=== PATIENT | female | born 1955 | race Caucasian/White ===

== ENCOUNTER 2018-07-14 06:37 | Inpatient (IN) | payer MEDICAID ==
[2018-07-14] MEDS ORDERED: Bupivacaine 0.5%/EPINEPHrine 1:200,000 50 ML MDV ONE (06:38)
[2018-07-14] MEDS ORDERED: Scopolamine 1.5 MG Transdermal Patch TOP ONE (06:45)
[2018-07-14] MEDS ORDERED: Acetaminophen 500 MG Tab PO ONE (06:45)
[2018-07-14] MEDS ORDERED: Dextrose 5%-Lactated Ringers 1,000 ML IV SCH (07:00)
[2018-07-14] MEDS ORDERED: Neostigmine Methylsulfate 1 MG/ML 5 ML Syringe ONE (07:52)
[2018-07-14] MEDS ORDERED: Rocuronium 50 MG/5 ML Vial ONE (07:52)
[2018-07-14] MEDS ORDERED: Succinylcholine 200 MG/10 ML MDV ONE (07:52)
[2018-07-14] MEDS ORDERED: Propofol 200 MG/20 ML SDV ONE (07:52)
[2018-07-14] MEDS ORDERED: Ondansetron 4 MG/2 ML SDV ONE (07:52)
[2018-07-14] MEDS ORDERED: Dexamethasone 4 MG/ML SDV ONE (07:52)
[2018-07-14] MEDS ORDERED: fentaNYL 250 MCG/5 ML SDV ONE ×2 (07:52→09:19)
[2018-07-14] MEDS ORDERED: Glycopyrrolate 0.2 MG/ML 5 ML MDV ONE (07:52)
[2018-07-14] MEDS ORDERED: cefOXitin 2 GM in Sodium Chloride 0.9% 50 ML IV ONE (08:00)
[2018-07-14] MEDS ORDERED: Meropenem 500 MG SDV ONE (08:03)
[2018-07-14] MEDS ORDERED: Ketamine 50 MG in Sodium Chloride 0.9% 49.5 ML IV SCH (08:15)
[2018-07-14] MEDS ORDERED: Ketamine 500 MG/5 ML MDV IV SCH (08:15)
[2018-07-14] MEDS ORDERED: Lactated Ringers 1,000 ML ONE (09:37)
[2018-07-14] MEDS ORDERED: Naloxone 0.4 MG/ML SDV ONE (10:12)
[2018-07-14] MEDS ORDERED: diphenhydrAMINE 50 MG/ML SDV IVPUSH PRN (12:10)
[2018-07-14] MEDS ORDERED: Metoclopramide 10 MG/2 ML SDV IVPUSH PRN (12:10)
[2018-07-14] MEDS ORDERED: HYDROmorphone 1 MG/ML Syringe IV PRN (12:10)
[2018-07-14] MEDS ORDERED: hydrOXYzine HCl 100 MG/2 ML SDV IM PRN (12:10)
[2018-07-14] MEDS ORDERED: Ondansetron 4 MG/2 ML SDV IVPUSH PRN (12:10)
[2018-07-14] MEDS ORDERED: Labetalol 20 MG/4 ML Syringe IVPUSH PRN (12:10)
[2018-07-14] MEDS: cefOXitin 2 GM in Sodium Chloride 0.9% 50 ML IV SCH ×2 (14:42→20:28)
[2018-07-14] MEDS ORDERED: MVI, Adult with Vitamin K 10 ML, Thiamine 200 MG, Chromium/Copper/Mang/Selen/Zn 1 ML in... IV SCH ×4 (16:00)
[2018-07-14] MEDS: Pantoprazole 40 MG Vial IVPUSH SCH (16:26)
[2018-07-14] MEDS: Sodium Ferric Gluconate Cmplex 250 MG in Sodium Chloride 0.9% 100 ML IV SCH (16:26)
[2018-07-14] MEDS: Acetaminophen 325 MG Tab PO SCH ×2 (16:26→23:02)
[2018-07-14] MEDS: MVI, Adult with Vitamin K 10 ML, Thiamine 200 MG, Chromium/Copper/Mang/Selen/Zn 1 ML in... IV SCH ×4 (18:31)
[2018-07-14] MEDS: Heparin Sodium 5,000 Units/ML Vial SUBCUT SCH (20:44)
[2018-07-14] MEDS: HYDROmorphone 0.5 MG/0.5 ML Syringe IVPUSH PRN (20:51)
[2018-07-15] MEDS: Dextrose 5%-Lactated Ringers 1,000 ML IV SCH ×2 (00:54→08:14)
[2018-07-15] MEDS ORDERED: Iohexol 647 MG/ML 50 ML SDV PO SCH (01:30)
[2018-07-15] MEDS: cefOXitin 2 GM in Sodium Chloride 0.9% 50 ML IV SCH (02:54)
[2018-07-15] MEDS: Acetaminophen 325 MG Tab PO SCH ×3 (03:01→15:26)
[2018-07-15] MEDS: HYDROmorphone 0.5 MG/0.5 ML Syringe IVPUSH PRN (03:06)
--- NOTE | 2018-07-15 05:50 | CRLCR ---
Indication: Suzette-en-Y gastric bypass. Technique: Abdomen 2 view Comparison: None Findings/Impression: Two submitted plain film abdomen. Initial image shows contrast within the distal esophagus extending into the proximal small bowel without gross extravasation. Skin vance and pneumoperitoneum are noted consistent with recent surgery. Second film labeled 15 minutes shows progression of contrast into the proximal small bowel. No gross extravasation. Dictated by Eliot Nathan MD @ Jul 15 2018 5:47AM Signed by Dr. Eliot Nathan @ Jul 15 2018 5:49AM
[2018-07-15] MEDS: Heparin Sodium 5,000 Units/ML Vial SUBCUT SCH ×2 (08:15→20:17)
[2018-07-15] MEDS: SCOPOLAMINE PATCH CHECK TOP SCH (08:15)
[2018-07-15] MEDS ORDERED: Dextrose 5%-Lactated Ringers 1,000 ML IV SCH (08:22)
[2018-07-15] MEDS: HYDROmorphone 2 MG Tab PO PRN ×3 (09:01→20:15)
[2018-07-15] MEDS: Ondansetron 4 MG Tab.DIS PO PRN ×2 (10:28→20:15)
--- NOTE | 2018-07-15 11:42 | PN ---
DATE OF SERVICE: 07/15/2018 SUBJECTIVE: Katarina is postoperative day #1. She states her pain is well managed, but she is having issues with nausea. REVIEW OF SYSTEMS: Remainder of review of systems negative for any pertinent positives and negatives. Her upper GI this morning was normal. OBJECTIVE: GENERAL: Katarina Pressley is a 63-year-old female. She is alert and orientated. VITAL SIGNS: TPR is 97.5, 61, 16, blood pressure 152/69. HEENT: Negative. NECK: Supple. HEART: Regular rate and rhythm. LUNGS: Clear. ABDOMEN: Dressings dry and intact. Abdominal binder is on. EXTREMITIES: Without peripheral edema. ASSESSMENT: 1. Laparoscopic turned to laparotomy with: a. Reduction of small bowel volvulus and closure of internal hernia. b. Small-bowel resection. c. Placement of Interceed mesh for small bowel volvulus, small bowel BP limb stump causing malrotation or distortion of the segment of the jejunojejunostomy. Date of surgery: 07/14/2018. Surgeon: José Nevarez MD. PLAN: 1. Dilaudid 2 mg 1-2 q.4 hours p.r.n. pain. 2. Decrease IV to 100 mL per hour. 3. Step 3 gastric bypass diet. 4. Zofran 4 mg ODT q.4 hours p.r.n. nausea. 5. Good pulmonary toilet. 6. We will evaluate p.r.n. or in a.m. Lisa Sánchez PA-C /[id number]
[2018-07-15] MEDS: Sodium Ferric Gluconate Cmplex 250 MG in Sodium Chloride 0.9% 100 ML IV SCH (15:27)
[2018-07-15] MEDS: Pantoprazole 40 MG Vial IVPUSH SCH (15:28)
[2018-07-15] MEDS ORDERED: Lactated Ringers 500 ML IV SCH (17:30)
[2018-07-15] MEDS: MVI, Adult with Vitamin K 10 ML, Thiamine 200 MG, Chromium/Copper/Mang/Selen/Zn 1 ML in... IV SCH ×4 (17:43)
[2018-07-16] MEDS: Acetaminophen 325 MG Tab PO SCH ×5 (01:07→22:25)
[2018-07-16] MEDS ORDERED: Sodium Chloride 0.9% 10 ML Syringe IV PRN (07:59)
[2018-07-16] MEDS: Heparin Sodium 5,000 Units/ML Vial SUBCUT SCH ×2 (08:08→22:25)
[2018-07-16] MEDS: HYDROmorphone 2 MG Tab PO PRN ×3 (08:14→22:28)
[2018-07-16] MEDS: SCOPOLAMINE PATCH CHECK TOP SCH (08:16)
[2018-07-16] MEDS ORDERED: Cyanocobalamin (Vitamin B12) 1,000 MCG/ML SDV IM ONE (09:00)
[2018-07-16] MEDS: Magnesium Hydroxide 400 MG/5 ML Susp 30 ML Cup PO SCH ×2 (10:28→23:34)
[2018-07-16] MEDS: Pantoprazole 40 MG Vial IVPUSH SCH (15:51)
[2018-07-16] MEDS: MVI, Adult with Vitamin K 10 ML, Thiamine 200 MG, Chromium/Copper/Mang/Selen/Zn 1 ML in... IV SCH ×4 (18:07)
[2018-07-17] MEDS: Acetaminophen 325 MG Tab PO SCH ×2 (04:14→10:17)
[2018-07-17] MEDS: Heparin Sodium 5,000 Units/ML Vial SUBCUT SCH (08:44)
[2018-07-17 08:54] VITALS: BP 138/79
[2018-07-17] MEDS: HYDROmorphone 2 MG Tab PO PRN (10:16)
--- NOTE | 2018-07-17 11:53 | PN ---
DATE OF SERVICE: 07/16/2018 The patient has been afebrile with stable vital signs. No bowel movement as of yet, but she is passing a little bit of gas. We will bowel stimulate today. We will switch her over to oral pain medication. discharge home tomorrow. She will get her second IV iron infusion today as well. José Nevarez MD /[id number]
--- NOTE | 2018-07-17 13:21 | DISCH ---
FINAL DIAGNOSES: 1. Small bowel volvulus. 2. 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 SECONDARY DIAGNOSES: 1. Bariatric surgery status. 2. Iron-deficiency status. 3. History of hyperlipidemia. 4. History of hypertension. 5. Osteopenia. OPERATIVE PROCEDURE: Done on 07/14/2018, diagnostic laparoscopy converted to laparotomy with: 1. Reduction of small bowel volvulus and closure of internal hernia. 2. Small bowel resection. 3. Placement of Interceed mesh to limit recurrent adhesion formation. SUMMARY: This is a 63-year-old female status post Suzette-en-Y gastric bypass done in February 2015, who presents now with several-week history of increasing mid and upper abdominal pain. A CT scan was obtained, which was initially read as having only some thickening of the right colon, but on further review, it really had a picture suggestive of small bowel volvulus which would be consistent with the patient's presentation. On the date of admission, the patient underwent a diagnostic laparoscopy and volvulus was confirmed. This was small enough to be try to takedown laparoscopically, so limited upper abdominal incision was used and volvulus was reduced and mesenteric defect was closed. The jejunojejunostomy appeared to be somewhat distorted in its course by traction of the mesentery and biliopancreatic limb, so that area was resected and Interceed mesh was then placed to limit recurrent adhesion formation. Postoperatively, the patient has done well, her pain has alleviated. She will be discharged home on her usual medications plus Dilaudid 2 to 4 mg p.o. q.4 hours p.r.n. pain, #40 along with Tylenol on a p.r.n. basis. She will be following up with Lisa Sánchez in [facility] on 07/25/2018.
--- NOTE | 2018-07-18 13:25 | OR ---
DATE OF PROCEDURE: 07/14/2018 PREOPERATIVE DIAGNOSIS: Probable small bowel volvulus. POSTOPERATIVE DIAGNOSES: 1. Small bowel volvulus. 2. Mesenteric traction of small bowel biliopancreatic limb causing distortion of alignment of jejunojejunostomy. OPERATIVE PROCEDURE: Laparoscopy converted to laparotomy with: 1. Reduction of small bowel volvulus and closure of internal hernia (71276). 2. Small bowel resection (81391). 3. Placement of Interceed mesh (23562). ANESTHESIA: General. ASSISTANTS: Lisa Sánchez PA-C, and ROXANNA Kaplan. INDICATIONS FOR PROCEDURE: This is a 63-year-old status post Suzette-en-Y gastric bypass presenting with ongoing abdominal pain particularly in the postprandial period associated with some sense of bloating and fullness in the left, mid, and upper abdomen. The CT scan appears to be consistent with a small bowel volvulus and the plan is to treat with laparoscopy and laparotomy if necessary with reduction of volvulus and closure of any identifiable internal hernia and small bowel resection as indicated. Potential risks of the procedure including bleeding, infection, injury to underlying viscera, problems with volvulus or types of bowel obstruction recurring as well as remote possibility of cardiopulmonary, septic, or hemorrhagic complications leading to were discussed, and the patient wishes to proceed. DETAILS OF PROCEDURE: The patient was taken to the operating room, and after general endotracheal anesthesia was induced, was placed in a lithotomy position. Scott catheter was inserted, and the abdomen prepped and draped. Initially, in the left lower quadrant, a transverse incision was made, and peritoneal cavity entered under direct vision with an Optiview trocar and inflated to 15 mmHg pressure of CO2. Following this, 3 additional 5 mm trocars were placed, 2 on the left and 1 on the right. On initial examination, much of the small bowel had a slightly dusky appearance consistent with some venous hypertension. As one began tracing down the Suzette limb, it became evident that this was diving into the depths of the mesentery and through the mesenteric defect consistent with small bowel volvulus. We initially tried reducing this by traction down the distal most small bowel. The ileocecal valve was noted to be pulled rightward and associated with some inflammation there as well as the adjacent right colon. As one began reducing this, it became evident that the amount of force required would make a laparoscopic approach unsafe due to likely tearing of the bowel with laparoscopic instrumentation. Given this, trocars were removed, and we converted it to an open approach. Upon removal of the trocars, the midline incision was made from the umbilicus upwards, roughly 3 fingerbreadths below the xiphoid. The small incision possible was used in order to satisfactorily proceed with the operation. As one noted then, the small bowel was somewhat elevated in the stomach. We did manual reduction of this from a [id number] direction and this was eventually completely reduced. The bowel was included all, but the last 3 cm to 4 cm of the Suzette limb at the ileocecal valve and as well as the jejunojejunostomy and the secondary portion of the biliopancreatic limb and Suzette limb. Once these were reduced, all areas became pink and the venous hypertension pattern was absent, and all areas of bowel were clearly viable. Examination of the jejunojejunostomy at this point showed some distortion of its course by the traction of the mesentery and the stump of the biliopancreatic limb. This was resected adjacent to the jejunojejunostomy with KACEY napoles load, and the small bowel specimens were delivered from the field. This allowed a nice alignment of the jejunojejunostomy at that point. The mesenteric defect was then approximated with a running 2-0 silk stitch. No other mesenteric defects were identified, and at that point, the abdomen was initially closed at the fascial level with #2 Vicryl stitch. [place] through this, Interceed mesh was placed underneath the incision, downward towards the pelvis to limit recurrent adhesion formation as the omentum was not available due to it being adhesed in the upper abdomen to cover the area of incision downward and into the pelvis. Once we placed the Interceed mesh, the remainder of the fascial closure was accomplished with a #2 Vicryl stitch. Subcutaneous tissue was approximated with 2 layers of 3-0 and 4-0 Vicryl stitch deep and vance for the skin. Dressing was applied. The patient was taken to the recovery room in satisfactory condition. There were no other complications. Physician statistical assistant, Lisa Sánchez PA-C, played an essential role in assisting in this case, helping to position the patient, retract structures as needed, as well as suturing and cutting sutures when indicated. Her presence improved patient safety and decreased the operative time. José Nevarez MD /[id number]
== END 2018-07-17 11:49 | disposition home or self-care (01) | DRG 221 ==
LOC: JP.SDSSCHI 06:37 → JP.SDS 06:37 → EDSTATUS 08:00 → JP.MS 10:20
PROVIDERS: ADMIT Surgery; ATTEND Surgery
PROC: 0DS84ZZ Reposition Small Intestine, Percutaneous Endoscopic Approach (ICD-10-PCS; principal; 2018-07-14)
PROC: 0DJD4ZZ Inspection of Lower Intestinal Tract, Percutaneous Endoscopic Approach (ICD-10-PCS; 2018-07-14)
PROC: 0DB80ZZ Excision of Small Intestine, Open Approach (ICD-10-PCS; 2018-07-14)
PROC: 0DBA0ZZ Excision of Jejunum, Open Approach (ICD-10-PCS; 2018-07-14)
PROC: 0DQV0ZZ Repair Mesentery, Open Approach (ICD-10-PCS; 2018-07-14)
PROC: 3E0M05Z Introduction of Adhesion Barrier into Peritoneal Cavity, Open Approach (ICD-10-PCS; 2018-07-14)
DX: K56.2 Volvulus (principal); K46.9 Unspecified abdominal hernia without obstruction or gangrene; Z53.31 Laparoscopic surgical procedure converted to open procedure; K91.2 Postsurgical malabsorption, not elsewhere classified; E50.9 Vitamin A deficiency, unspecified; E55.9 Vitamin D deficiency, unspecified; E53.8 Deficiency of other specified B group vitamins; Z98.84 Bariatric surgery status; Z98.0 Intestinal bypass and anastomosis status; I10 Essential (primary) hypertension; E78.5 Hyperlipidemia, unspecified; M81.0 Age-related osteoporosis without current pathological fracture
CPT/HCPCS: 74240; 88305; 94762; A9270-GY; C9113; J0171; J0330; J0694; J1100; J1170; J1644; J2185; J2310; J2405; J2704; J2710; J2795; J2916; J3010; J3411; J3420; J3490; J7030; J7042; J7050; J7120; Q9967